=== PATIENT | male | born 1935 ===

== ENCOUNTER 2021-06-01 19:51 | Emergency (ER) | payer SELFPAY ==
[~2021-06-01] VITALS: Ht 172.7 cm; Wt 90.7 kg
[2021-06-01] MEDS ORDERED: MORPHINE SULFATE INJECTION 2 MG/ML SYRG IV ONE (22:15)
[2021-06-01] MEDS ORDERED: MORPHINE SULFATE 4 MG/ML SYR/VIAL IV ONE (22:15)
[2021-06-01] MEDS ORDERED: ONDANSETRON HCL 4 MG/2 ML VIAL IV ONE (22:15)
[2021-06-02] MEDS ORDERED: MORPHINE SULFATE INJECTION 2 MG/ML SYRG IV ONE (00:15)
[2021-06-02 00:47] VITALS: BP 178/91
== END 2021-06-02 03:14 | disposition home or self-care (01) ==
LOC: EDBD 19:51 → ER 19:51
DX: S82.191A Other fracture of upper end of right tibia, initial encounter for closed fracture (principal); E66.9 Obesity, unspecified; Z68.30 Body mass index [BMI] 30.0-30.9, adult; X58.XXXA Exposure to other specified factors, initial encounter; Y93.89 Activity, other specified; Y92.89 Other specified places as the place of occurrence of the external cause; Y99.8 Other external cause status
CPT/HCPCS: 29515; 73564; 73590; 96374; 99284; J2270; J2405

== ENCOUNTER 2024-04-13 12:40 | Inpatient (IN) | payer OTHER ==
[~2024-04-13] VITALS: Ht 175.3 cm; Wt 76.8 kg
[2024-04-13 14:11] LABS: Basophils # (auto) 0 10 ^3/uL (0-0.2); Basophils % (auto) 0.4 % (0.0-2.0); Eosinophils # (auto) 0.1 10 ^3/uL (0-0.8); Eosinophils % (auto) 1.8 % (0.0-7.0); Hematocrit 37.9 % (41.0-53.0); Hemoglobin 12.8 g/dL (13.5-17.5); Lymphocytes # (auto) 1.6 10 ^3/uL (0.4-5.4); Lymphocytes % (auto) 22.9 % (10.0-50.0); Mean Corpuscular Hemoglobin 30.7 pg (28.0-32.0); Mean Corpuscular Hgb Conc. 33.7 g/dL (32.0-36.0); Monocytes # (auto) 0.5 10 ^3/uL (0-1.3); Monocytes % (auto) 7.8 % (0.0-12.0); Neutrophils # (auto) 4.6 10 ^3/uL (1.6-8.6); Neutrophils % (auto) 67.1 % (37.0-80.0); Nucleated Red Blood Cells % 0.1 %; Platelet Count (auto) 193 10^3/uL (140-450); Red Blood Cells 4.16 10^6/uL (4.5-5.90); Red Cell Distribution Width 15.3 % (11.8-14.3); White Blood Cell 6.8 10^3/uL (4.4-10.8)
[2024-04-13 14:26] LABS: INR 1.18 (0.9-1.15); Partial Thromboplastin Time 30.2 SEC (24.5-34.5); Prothrombin Time 12.4 sec (9.3-11.8)
[2024-04-13 14:29] LABS: Urine Bacteria None Seen /hpf (None Seen); Urine WBC None Seen /hpf (0 - 3)
[2024-04-13 14:41] LABS: Urine Blood Negative /uL (Negative); Urine Clarity Clear (Clear); Urine Color Yellow (Yellow); Urine Mucus FEW (None Seen); Urine Protein, UAD TRACE (Negative); Urine Urobilinogen 3 mg/dL (Negative)
[2024-04-13 14:42] LABS: Alanine Aminotransferase 14 U/L (7-40); Albumin 3.7 g/dL (3.2-4.8); Alkaline Phosphatase 66 U/L (46-116); Anion Gap 6 (5-15); Aspartate Aminotransferase 12 U/L (13-40); BUN/Creatinine Ratio 22.1 (10.0-20.0); Bilirubin, Total 0.9 mg/dL (0.2-1.0); Blood Urea Nitrogen 19 mg/dL (9-23); Calcium 9.1 mg/dL (8.7-10.4); Carbon Dioxide 25 mmol/L (20-30); Chloride 112 mmol/L (98-107); Glucose 103 mg/dL (74-106); Potassium 3.9 mmol/L (3.5-5.1); Sodium 143 mmol/L (136-145); Total Protein 5.8 g/dL (5.7-8.2)
[2024-04-13] MEDS: SODIUM CHLORIDE 0.9% 1,000 ML IV SCH (17:34)
[2024-04-13] MEDS: SODIUM CHLORIDE 0.9% 1,000 ML IVB ONE (17:34)
[2024-04-13] MEDS: HYDROcodone-ACET 5/325MG TAB PO PRN (17:59)
[2024-04-13] MEDS: MORPHINE SULFATE 4 MG/ML SYR/VIAL IV ONE (18:41)
[2024-04-13 19:09] VITALS: BP 151/94; PULSE 80; PULSE 85; RESP 20; TEMP 99; O2SAT 94
[2024-04-13 20:00] VITALS: PULSE 82; RESP 20
[2024-04-13 21:00] VITALS: BP 130/76; PULSE 80; RESP 19; TEMP 99.1; O2SAT 94
[2024-04-13] MEDS: MORPHINE SULFATE INJ 2 MG/ml SYRG IV PRN (22:46)
[2024-04-14] VITALS (24 sets, daily range): BP systolic 125–154; BP diastolic 68–91; PULSE 60–84; RESP 16–20; TEMP 97.4–98.9; O2SAT 91–100
[2024-04-14 06:10] LABS: Basophils # (auto) 0 10 ^3/uL (0-0.2); Basophils % (auto) 0.7 % (0.0-2.0); Eosinophils # (auto) 0.2 10 ^3/uL (0-0.8); Eosinophils % (auto) 3.1 % (0.0-7.0); Hematocrit 35.8 % (41.0-53.0); Hemoglobin 12.2 g/dL (13.5-17.5); Lymphocytes # (auto) 1.7 10 ^3/uL (0.4-5.4); Mean Corpuscular Hemoglobin 31.1 pg (28.0-32.0); Mean Corpuscular Volume 91.3 fL (80.0-100.0); Monocytes # (auto) 0.5 10 ^3/uL (0-1.3); Monocytes % (auto) 8.7 % (0.0-12.0); Neutrophils # (auto) 3.7 10 ^3/uL (1.6-8.6); Neutrophils % (auto) 59.5 % (37.0-80.0); Platelet Count (auto) 160 10^3/uL (140-450); Red Blood Cells 3.92 10^6/uL (4.5-5.90); Red Cell Distribution Width 15.6 % (11.8-14.3); White Blood Cell 6.2 10^3/uL (4.4-10.8)
[2024-04-14 06:25] LABS: Alanine Aminotransferase 11 U/L (7-40); Albumin 3.4 g/dL (3.2-4.8); Alkaline Phosphatase 60 U/L (46-116); Anion Gap 5 (5-15); Aspartate Aminotransferase < 8 U/L (13-40); BUN/Creatinine Ratio 18.9 (10.0-20.0); Blood Urea Nitrogen 14 mg/dL (9-23); Calcium 8.6 mg/dL (8.7-10.4); Carbon Dioxide 24 mmol/L (20-30); Chloride 110 mmol/L (98-107); Glucose 114 mg/dL (74-106); Potassium 3.8 mmol/L (3.5-5.1); Sodium 139 mmol/L (136-145); Total Protein 5.6 g/dL (5.7-8.2)
[2024-04-14] MEDS ORDERED: MORPHINE SULF PF 5 MG/10 ML VIAL ONE (12:10)
[2024-04-14] MEDS ORDERED: MIDAZOLAM HCL 2MG/2ML 2ml VIAL (1mg/ml) ONE (12:10)
[2024-04-14] MEDS ORDERED: fentaNYL CITRATE 100 MCG/2 ML VL ONE (12:10)
[2024-04-14] MEDS ORDERED: PROPOFOL 10 MG/ML 20 ML IV ONE (12:11)
[2024-04-14] MEDS ORDERED: KETAMINE 50mg/ML 1ml syringe ONE (12:11)
[2024-04-14] MEDS ORDERED: DexAMETHasone SOD PHOS 10MG/1ML VIAL INJ ONE (12:11)
[2024-04-14] MEDS ORDERED: PHENYLEPHRINE HCL 10 MG/ML VL IV ONE (12:52)
[2024-04-14] MEDS ORDERED: DexAMETHasone SOD PHOS 10MG/1ML VIAL INJ IV PRN (13:30)
[2024-04-14] MEDS ORDERED: HYDROmorphone HCL 2 MG/ML VL/or syr IV PRN ×2 (13:30)
[2024-04-14] MEDS ORDERED: ALBUTEROL SULF 2.5 MG/0.5ML(0.5%) NEB SOLN NEB PRN (13:30)
[2024-04-14] MEDS ORDERED: ONDANSETRON HCL 4 MG/2 ML VIAL IV PRN (13:30)
[2024-04-14] MEDS ORDERED: ePHEDrine SULFATE 50 MG/ML AMP IV PRN ×2 (13:30)
[2024-04-14] MEDS ORDERED: MIDAZOLAM HCL 2MG/2ML 2ml VIAL (1mg/ml) IV PRN (13:30)
[2024-04-14] MEDS ORDERED: NALOXONE HCL 0.4 MG/ML VIAL IV PRN (13:30)
[2024-04-14] MEDS ORDERED: hydrALAZINE HCL 20 MG/ML VL IV PRN (13:30)
[2024-04-14] MEDS: ceFAZolin 1GM/50ML 50 ML IV SCH (14:00)
[2024-04-14] MEDS: ceFAZolin 2 GM/D5W50ml 50 ML IV ONE (15:48)
[2024-04-14] MEDS: BUPIVACAINE W/ EPINEPH 0.5% INJ 50ML MDV IJ ONE (15:48)
[2024-04-14] MEDS: BUPIVACAINE 0.5% P/F INJ 10 ML VIAL ONE (15:49)
[2024-04-14] MEDS: ONDANSETRON HCL 4 MG/2 ML VIAL IV ONE (15:49)
[2024-04-15] VITALS (28 sets, daily range): BP systolic 111–156; BP diastolic 68–86; PULSE 63–96; RESP 15–20; TEMP 97.5–99.3; O2SAT 20–98
[2024-04-15 06:37] LABS: Basophils # (auto) 0 10 ^3/uL (0-0.2); Basophils % (auto) 0.1 % (0.0-2.0); Eosinophils # (auto) 0 10 ^3/uL (0-0.8); Eosinophils % (auto) 0.1 % (0.0-7.0); Hematocrit 34.7 % (41.0-53.0); Hemoglobin 12.1 g/dL (13.5-17.5); Lymphocytes # (auto) 1.6 10 ^3/uL (0.4-5.4); Lymphocytes % (auto) 15.6 % (10.0-50.0); Mean Corpuscular Hemoglobin 31.4 pg (28.0-32.0); Mean Corpuscular Hgb Conc. 34.8 g/dL (32.0-36.0); Mean Corpuscular Volume 90.4 fL (80.0-100.0); Monocytes # (auto) 0.7 10 ^3/uL (0-1.3); Monocytes % (auto) 7.4 % (0.0-12.0); Neutrophils # (auto) 7.6 10 ^3/uL (1.6-8.6); Neutrophils % (auto) 76.8 % (37.0-80.0); Nucleated Red Blood Cells % 0.1 %; Platelet Count (auto) 157 10^3/uL (140-450); Red Blood Cells 3.84 10^6/uL (4.5-5.90); Red Cell Distribution Width 15.3 % (11.8-14.3); White Blood Cell 9.9 10^3/uL (4.4-10.8)
[2024-04-15 06:39] LABS: Chloride 108 mmol/L (98-107); Potassium 4.1 mmol/L (3.5-5.1); Sodium 136 mmol/L (136-145)
[2024-04-15 06:40] LABS: Anion Gap 4 (5-15); Carbon Dioxide 24 mmol/L (20-30)
[2024-04-15 06:41] LABS: Calcium 8.7 mg/dL (8.7-10.4)
[2024-04-15 06:45] LABS: Glucose 144 mg/dL (74-106)
[2024-04-15 07:51] LABS: BUN/Creatinine Ratio 20.5 (10.0-20.0); Blood Urea Nitrogen 16 mg/dL (9-23)
[2024-04-15] MEDS: CEFEPIME 1GM/ 50ML 50 ML IV SCH (09:25)
[2024-04-15] MEDS: APIXABAN 2.5 MG TAB PO SCH (21:54)
[2024-04-16] VITALS (10 sets, daily range): BP systolic 109–147; BP diastolic 63–82; PULSE 74–87; RESP 16–18; TEMP 98.2–99; O2SAT 93–98
[2024-04-16] MEDS: SENNA 8.6 MG TAB PO SCH (21:10)
[2024-04-17] VITALS (8 sets, daily range): BP systolic 107–128; BP diastolic 58–79; PULSE 69–88; RESP 16–18; TEMP 98.1–99.2; O2SAT 91–100
[2024-04-17 08:48] LABS: Hepatitis B Surface Antigen Negative (Negative)
[2024-04-17 09:09] LABS: Hepatitis C Antibody Negative (Negative)
[2024-04-18] VITALS (9 sets, daily range): BP systolic 105–129; BP diastolic 69–85; PULSE 63–83; RESP 16–20; TEMP 97.6–99.5; O2SAT 93–98
[2024-04-18] MEDS ORDERED: ALBUTEROL SULF 2.5 MG/0.5ML(0.5%) NEB SOLN NEB PRN (18:15)
[2024-04-19] VITALS (9 sets, daily range): BP systolic 106–131; BP diastolic 64–78; PULSE 71–89; RESP 18–21; TEMP 97.4–98; O2SAT 92–98
[2024-04-19] MEDS: LACTULOSE 20Gm/30ML SOLN PO ONE (17:57)
[2024-04-19] MEDS: SENNA 8.6 MG TAB PO SCH (21:41)
[2024-04-20] VITALS (8 sets, daily range): BP systolic 105–129; BP diastolic 63–80; PULSE 58–89; RESP 18–21; TEMP 97.5–98.6; O2SAT 90–100
[2024-04-21] VITALS (7 sets, daily range): BP systolic 99–120; BP diastolic 60–75; PULSE 72–77; RESP 16–19; TEMP 97.4–98.2; O2SAT 91–98
[2024-04-21] MEDS ORDERED: ALBUTEROL SULF HFA 90MCG INH 200DOSE IN PRN (14:45)
[2024-04-21] MEDS ORDERED: ALBUTEROL SULF 2.5 MG/0.5ML(0.5%) NEB SOLN NEB PRN (15:30)
[2024-04-21] MEDS: ACETAMINOPHEN 325 MG TAB PO PRN (21:39)
[2024-04-22] VITALS (8 sets, daily range): BP systolic 95–111; BP diastolic 66–73; PULSE 70–81; RESP 16–19; TEMP 97.3–98.6; O2SAT 92–97
[2024-04-22 09:51] LABS: Basophils # (auto) 0.1 10 ^3/uL (0-0.2); Basophils % (auto) 0.9 % (0.0-2.0); Eosinophils # (auto) 0.5 10 ^3/uL (0-0.8); Eosinophils % (auto) 8.3 % (0.0-7.0); Hematocrit 38.9 % (41.0-53.0); Hemoglobin 12.8 g/dL (13.5-17.5); Lymphocytes # (auto) 1.5 10 ^3/uL (0.4-5.4); Lymphocytes % (auto) 23.7 % (10.0-50.0); Mean Corpuscular Hemoglobin 30.1 pg (28.0-32.0); Mean Corpuscular Hgb Conc. 32.9 g/dL (32.0-36.0); Mean Corpuscular Volume 91.4 fL (80.0-100.0); Monocytes # (auto) 0.4 10 ^3/uL (0-1.3); Monocytes % (auto) 6.6 % (0.0-12.0); Neutrophils # (auto) 3.7 10 ^3/uL (1.6-8.6); Neutrophils % (auto) 60.5 % (37.0-80.0); Nucleated Red Blood Cells % 0.1 %; Platelet Count (auto) 337 10^3/uL (140-450); Red Blood Cells 4.25 10^6/uL (4.5-5.90); Red Cell Distribution Width 14.9 % (11.8-14.3); White Blood Cell 6.2 10^3/uL (4.4-10.8)
[2024-04-22 10:12] LABS: Albumin 3.7 g/dL (3.2-4.8); Alkaline Phosphatase 109 U/L (46-116); Anion Gap 1 (5-15); Aspartate Aminotransferase 13 U/L (13-40); BUN/Creatinine Ratio 24.5 (10.0-20.0); Bilirubin, Total 0.7 mg/dL (0.2-1.0); Blood Urea Nitrogen 23 mg/dL (9-23); Calcium 9.9 mg/dL (8.7-10.4); Carbon Dioxide 33 mmol/L (20-30); Chloride 102 mmol/L (98-107); Glucose 130 mg/dL (74-106); Potassium 4.2 mmol/L (3.5-5.1); Sodium 136 mmol/L (136-145); Total Protein 6.4 g/dL (5.7-8.2)
[2024-04-22 10:20] LABS: Alanine Aminotransferase < 9 U/L (7-40)
== END 2024-04-22 12:25 | disposition home or self-care (01) | DRG 482 ==
LOC: ER 12:40 → EDBD 12:40 → OVERFLOW 15:02 → WEST WING 19:10 → TELE-WESTW 04-14 16:58 → WEST WING 04-15 21:13
PROVIDERS: ADMIT Nurse Practitioner Family; ATTEND Hospitalist
PROC: 0QS604Z Reposition Right Upper Femur with Internal Fixation Device, Open Approach (ICD-10-PCS; principal; 2024-04-14 12:20)
DX: S72.141A Displaced intertrochanteric fracture of right femur, initial encounter for closed fracture (principal); I10 Essential (primary) hypertension; K59.00 Constipation, unspecified; W18.39XA Other fall on same level, initial encounter; Y93.89 Activity, other specified; Y92.89 Other specified places as the place of occurrence of the external cause; Y99.8 Other external cause status
CPT/HCPCS: 36415; 71045; 72170; 73502; 73560; 76000; 80048; 80053; 81001; 82550; 84484; 85025; 85610; 85730; 86803; 86850; 86900; 86901; 87340; 93005; 93306; 97110; 97116; 97163; 97530; A4565; G0378; J1100; J2250; J2704; J3490